=== PATIENT | female | born 1950 | race Hispanic/Latino ===

== ENCOUNTER → 2020-10-02 | Outpatient (CLI) | payer OTHER | END | disposition home or self-care (01) | LOC: RAH 14:33 | PROVIDERS: ATTEND Internal Medicine Cardiovascular Disease | DX: I65.21 Occlusion and stenosis of right carotid artery (principal) | CPT/HCPCS: 93880 ==

== ENCOUNTER 2020-11-18 17:43 | Emergency (ER) | payer OTHER ==
[~2020-11-18] VITALS: Ht 162.6 cm; Wt 73.9 kg
[2020-11-18 18:24] VITALS: BP 128/74
[2020-11-18 18:35] LABS: BASOPHILS % (AUTO) 0.9 % (0.0-5.0); HEMATOCRIT 43.5 % (36-48); LYMPHOCYTES % (AUTO) 36.1 % (21.0-51.0); MEAN CORPUSCULAR HEMOGLOBIN 28.8 pg (27.0-33.0); MEAN CORPUSCULAR HGB CONC 32.4 g/dL (32.0-36.0); MEAN CORPUSCULAR VOLUME 88.8 fL (79-99); MONOCYTES % (AUTO) 4.8 % (3.0-13.0); NEUTROPHILS % (AUTO) 52.9 % (40.0-77.0); PLATELET COUNT (AUTO) 337 K/uL (130-400); RED CELL DISTRIBUTION WIDTH 13.6 % (11.0-15.5)
[2020-11-18 18:49] LABS: CREATININE 0.6 mg/dL (0.5-1.5)
[2020-11-18 18:56] LABS: ALBUMIN 4.1 g/dL (3.5-5.0); BILIRUBIN,TOTAL 0.3 mg/dL (0.2-1.0); TOTAL PROTEIN, SERUM 8.3 g/dL (6.0-8.3)
[2020-11-18] MEDS ORDERED: ONDANSETRON 4MG INJ IVP ONE (19:30)
[2020-11-18] MEDS ORDERED: LACTATED RINGERS 500 ML 500 ML IV ONE ×2 (19:30→19:47)
[2020-11-18] MEDS ORDERED: FAMOTIDINE 20MG VIAL IV ONE (19:30)
[2020-11-18] MEDS ORDERED: METOCLOPRAMIDE 10 MG/2 ML VIAL IVP ONE (19:30)
[2020-11-18] MEDS ORDERED: PANTOPRAZOLE 40 MG/VIAL ONE (19:45)
[2020-11-18] MEDS ORDERED: PANT40TA PO (19:48)
[2020-11-18] MEDS ORDERED: ONDA4TAB10 PO (19:48)
[2020-11-18] MEDS ORDERED: DICY20TA2 PO (19:48)
[2020-11-18] MEDS ORDERED: METO-296 PO (19:48)
[2020-11-18 19:59] VITALS: BP 109/53
[2020-11-18] MEDS ORDERED: PANTOPRAZOLE 40 MG/VIAL IVP SCH (20:00)
== END 2020-11-18 20:51 | disposition home or self-care (01) ==
LOC: EDH 17:43
DX: E86.9 Volume depletion, unspecified (principal); R10.13 Epigastric pain; R10.12 Left upper quadrant pain; E11.9 Type 2 diabetes mellitus without complications; I10 Essential (primary) hypertension; E78.00 Pure hypercholesterolemia, unspecified; Z90.710 Acquired absence of both cervix and uterus; Z88.6 Allergy status to analgesic agent
CPT/HCPCS: 36415; 71045; 74176; 80053; 82150; 83690; 84484; 85025; 93005; 96374; 96375; 99285; C9113; J2405; J2765; J3490; J7120; 96361

== ENCOUNTER 2021-02-24 18:03 | Emergency (ER) | payer OTHER ==
[~2021-02-24] VITALS: Ht 162.6 cm; Wt 73.0 kg
[~2021-02-24 18:03] MED LIST: DICY20TA2 PO; METO-296 PO; ONDA4TAB10 PO; PANT40TA PO
[2021-02-24 18:27] LABS: BASOPHILS % (AUTO) 0.7 % (0.0-5.0); EOSINOPHILS % (AUTO) 4.5 % (0.0-8.0); HEMATOCRIT 41.4 % (36-48); LYMPHOCYTES % (AUTO) 30.2 % (21.0-51.0); MEAN CORPUSCULAR HEMOGLOBIN 28.9 pg (27.0-33.0); MEAN CORPUSCULAR HGB CONC 33.1 g/dL (32.0-36.0); MEAN CORPUSCULAR VOLUME 87.3 fL (79-99); MONOCYTES % (AUTO) 5.4 % (3.0-13.0); PLATELET COUNT (AUTO) 296 K/uL (130-400); RED BLOOD CELL COUNT(AUTO) 4.74 MIL/uL (4.00-5.50); RED CELL DISTRIBUTION WIDTH 13.5 % (11.0-15.5); WHITE BLOOD COUNT (AUTO) 11.3 K/uL (4.8-10.8)
[2021-02-24 18:35] LABS: CREATININE 0.7 mg/dL (0.5-1.5); POTASSIUM 3.9 mmol/L (3.5-5.1)
[2021-02-24 18:39] LABS: ALBUMIN 4.4 g/dL (3.5-5.0); BILIRUBIN,TOTAL 0.3 mg/dL (0.2-1.0); TOTAL PROTEIN, SERUM 8.6 g/dL (6.0-8.3)
[2021-02-24 20:36] LABS: APPEARANCE,URINE Cloudy (CLEAR); BILIRUBIN,URINE Negative (NEGATIVE); COLOR,URINE Yellow (YELLOW); GLUCOSE, URINE (UA) Negative (NEGATIVE); KETONES,URINE Negative (NEGATIVE); LEUKOCYTE ESTERASE ,URINE Trace (NEGATIVE); NITRATE,URINE Negative (NEGATIVE); OCCULT BLOOD,URINE Negative (NEGATIVE); PROTEIN,URINE Negative (NEGATIVE); UROBILINOGEN,URINE 0.2 mg/dL (0.2-1.0)
[2021-02-24 20:51] LABS: BACTERIA,URINE Rare /HPF (None Seen); RBC,URINE 0-1 /HPF (0-1)
[2021-02-24 20:52] LABS: SQUAMOUS EPITHELIAL CELL,UR Few /HPF (0-2)
[2021-02-24] MEDS ORDERED: CEPHALEXIN 500 MG CAPSULE PO ONE (21:00)
[2021-02-24] MEDS ORDERED: PHENAZOPYRIDINE HCL 200 MG TABLET PO ONE (21:00)
[2021-02-24] MEDS ORDERED: CEPH500B PO (21:13)
[2021-02-24] MEDS ORDERED: PHEN-847 PO (21:13)
[2021-02-24] MEDS ORDERED: CEPHALEXIN 500 MG CAPSULE ONE (21:14)
[2021-02-24] MEDS ORDERED: PHENAZOPYRIDINE HCL 200 MG TABLET ONE (21:15)
[2021-02-24 21:30] VITALS: BP 130/76
== END 2021-02-24 21:45 | disposition home or self-care (01) ==
LOC: EDH 18:03
DX: N39.0 Urinary tract infection, site not specified (principal); E11.9 Type 2 diabetes mellitus without complications; E78.00 Pure hypercholesterolemia, unspecified; I10 Essential (primary) hypertension; Z79.899 Other long term (current) drug therapy; Z88.6 Allergy status to analgesic agent
CPT/HCPCS: 36415; 80053; 81001; 85025

== ENCOUNTER 2021-09-12 14:03 | Emergency (ER) | payer OTHER ==
[~2021-09-12] VITALS: Ht 162.6 cm; Wt 72.6 kg
[~2021-09-12 14:03] MED LIST changes: +CEPH500B PO; +PHEN-847 PO
[2021-09-12] MEDS ORDERED: CYCLOBENZAPRINE HCL 10 MG TABLET PO ONE (14:30)
[2021-09-12] MEDS ORDERED: HYDROCODONE/ACETAMINOPHEN 5/325 MG TAB PO ONE (14:30)
[2021-09-12 15:23] VITALS: BP 125/68
[2021-09-12] MEDS ORDERED: CYCL10TA16 PO (15:50)
[2021-09-12] MEDS ORDERED: ACET-2247 PO (15:50)
== END 2021-09-12 16:10 | disposition home or self-care (01) ==
LOC: EDH 14:03
DX: S16.1XXA Strain of muscle, fascia and tendon at neck level, initial encounter (principal); S09.90XA Unspecified injury of head, initial encounter; E11.9 Type 2 diabetes mellitus without complications; E78.00 Pure hypercholesterolemia, unspecified; I10 Essential (primary) hypertension; Z88.6 Allergy status to analgesic agent; Z79.899 Other long term (current) drug therapy; Z98.890 Other specified postprocedural states; W18.39XA Other fall on same level, initial encounter; Y93.89 Activity, other specified; Y92.89 Other specified places as the place of occurrence of the external cause; Y99.8 Other external cause status
CPT/HCPCS: 70450; 72125

== ENCOUNTER 2022-09-03 19:15 | Emergency (ER) | payer OTHER ==
[~2022-09-03] VITALS: Ht 162.6 cm; Wt 72.6 kg
[~2022-09-03 19:15] MED LIST changes: +ACET-2247 PO; +CYCL10TA16 PO
[2022-09-03 19:40] LABS: BASOPHILS % (AUTO) 0.7 % (0.0-5.0); EOSINOPHILS % (AUTO) 1.5 % (0.0-8.0); HEMATOCRIT 40.2 % (36-48); MEAN CORPUSCULAR HEMOGLOBIN 29.4 pg (27.0-33.0); MEAN CORPUSCULAR HGB CONC 32.8 g/dL (32.0-36.0); MEAN CORPUSCULAR VOLUME 89.5 fL (79-99); MONOCYTES % (AUTO) 13.7 % (3.0-13.0); NEUTROPHILS % (AUTO) 30.9 % (40.0-77.0); NUCLEATED RED BLOOD CELLS 0.6 % (0.0-0.19); PLATELET COUNT (AUTO) 306 K/uL (130-400); RED BLOOD CELL COUNT(AUTO) 4.49 MIL/uL (4.00-5.50); RED CELL DISTRIBUTION WIDTH 14.3 % (11.0-15.5); WHITE BLOOD COUNT (AUTO) 11.6 K/uL (4.8-10.8)
[2022-09-03 19:55] LABS: INR 0.98 (0.85-1.15); PROTHROMBIN TIME 10.7 SEC (9.6-11.6)
[2022-09-03 19:56] LABS: APPEARANCE,URINE CLEAR (CLEAR); BILIRUBIN,URINE NEGATIVE (NEGATIVE); GLUCOSE, URINE (UA) NEGATIVE (NEGATIVE); KETONES,URINE NEGATIVE (NEGATIVE); LEUKOCYTE ESTERASE ,URINE NEGATIVE Leu/uL (NEGATIVE); NITRATE,URINE NEGATIVE (NEGATIVE); OCCULT BLOOD,URINE NEGATIVE (NEGATIVE); PH,URINE 6.5 (5.0-8.0); PROTEIN,URINE NEGATIVE (NEGATIVE); UROBILINOGEN,URINE 0.2 mg/dL (0.2-1.0)
[2022-09-03 19:57] LABS: PARTIAL THROMBOPLASTIN TIME 27.7 SEC (26.3-35.5)
[2022-09-03 19:58] LABS: COLOR,URINE YELLOW (YELLOW)
[2022-09-03 19:59] LABS: CREATININE 0.9 mg/dL (0.5-1.5); POTASSIUM 3.4 mmol/L (3.5-5.1)
[2022-09-03 20:00] LABS: ALBUMIN 3.9 g/dL (3.5-5.0); TOTAL PROTEIN, SERUM 7.7 g/dL (6.0-8.3)
[2022-09-03] MEDS ORDERED: ACET-2743 PO (21:54)
[2022-09-03] MEDS ORDERED: GUAI1TBM19 PO (21:54)
[2022-09-03 22:19] VITALS: BP 143/65
== END 2022-09-03 22:46 | disposition home or self-care (01) ==
LOC: EDH 19:15
DX: R07.2 Precordial pain (principal); I10 Essential (primary) hypertension; E78.00 Pure hypercholesterolemia, unspecified; Z20.822 Contact with and (suspected) exposure to COVID-19; Z79.899 Other long term (current) drug therapy; Z98.890 Other specified postprocedural states; Z88.6 Allergy status to analgesic agent
CPT/HCPCS: 99284; 71045; 87635; 84484 ×2; 80053; 83880; 85025; 85378; 85610; 85730; 87804 ×2; 81003; 36415; 93005; C9803

== ENCOUNTER 2024-10-06 19:51 | Emergency (ER) | payer OTHER ==
[~2024-10-06] VITALS: Ht 162.6 cm; Wt 69.9 kg
[~2024-10-06 19:51] MED LIST changes: +ACET-2743 PO; +GUAI1TBM19 PO; +ONDA-243 PO; -ONDA4TAB10 PO
--- NOTE | 2024-10-06 19:58 | ERN ---
ED Note History of Present Illness Stated Complaint: ABD PAIN patient has been having abdominal pain last few days has been pooping every day. Denies any hematuria dysuria discharge. Chief Complaint: Abdominal Pain Time Seen by MD: 19:56 Allergies: Coded Allergies: aspirin (Unverified Allergy, Unknown, 11/18/20) Home Meds Active Scripts Acetaminophen (Tylenol Extra Strength) 500 Mg Tablet, 500 MG PO Q4HPRN PRN for PAIN, #50 TAB Prov:HEMA JJ MD 09/03/22 Guaifenesin/Dextromethorphan (Mucinex Dm ER 1,200-60 mg Tab) 1 Each Tbmp.12hr, 1 EACH PO BID, #10 TAB Prov:HEMA JJ MD 09/03/22 Acetaminophen (Tylenol) 325 Mg Tablet, 650 MG PO Q4HPRN, #50 TAB Prov:NAKUL JUÁREZ 09/12/21 Cyclobenzaprine HCl (Flexeril) 10 Mg Tab, 10 MG PO BID, #30 TAB Prov:NAKUL JUÁREZ 09/12/21 Phenazopyridine HCl (Pyridium) 200 Mg Tab, 200 MG PO TIDPC, #15 TAB TAKE WITH FOOD TO PREVENT STOMACH UPSET. Prov:TYSHAWN MUNSON MD 02/24/21 Cephalexin Monohydrate (Keflex) 500 Mg Cap, 500 MG PO BID for 5 Days, #10 CAP Prov:TYSHAWN MUNSON MD 02/24/21 Dicyclomine HCl (Bentyl) 20 Mg Tab, 20 MG PO Q6HPRN, #20 TAB 0 Refills Prov:JAMEL HOPSON MD 11/18/20 Metoclopramide HCl (Reglan) 10 Mg Tablet, 10 MG PO TIDP, #20 TAB 0 Refills Prov:JAMEL HOPSON MD 11/18/20 Ondansetron (Ondansetron Odt) 4 Mg Tab.rapdis, 4 MG PO Q6HPRN, #20 TAB 0 Refills Prov:JAMEL HOPSON MD 11/18/20 Pantoprazole Sodium (Protonix) 40 Mg Tablet.dr, 40 MG PO DAILY, #10 TAB 0 Refills Prov:JAMEL HOPSON MD 11/18/20 Past Medical History Past Medical History: High Cholesterol, Hypertension, Other Additional Past Medical Hx: CANCER Surgical History: Unknown Surgical History Other: RIGHT HAND SURGERY Family History: Negative Social History: Negative Review of System Dictation Constitutional: Negative for fever,chills, and weight loss Eyes: Negative for injury, pain,redness, and discharge ENT: Negative for injury,pain or swelling Cardiovascular: Negative for chest pain, palpitations, and edema Respiratory: Negative for shortness of breath, cough, and wheezing, Abdomen/GI: Negative for abdominal pain, nausea, vomiting, diarrhea, and constipation Back: Negative for injury and pain : Negative for injury, bleeding and discharge MS/Extremity: Negative for injury and deformity Skin: Negative for rash, and discoloration Neuro: Negative for headache, weakness, numbness, tingling, and seizure Psych: Negative for suicide ideation, homicidal ideation, and hallucinations Initial Vital Sign VS Vital Signs Date Time Temp Pulse Resp B/P (MAP) Pulse Ox O2 Delivery O2 Flow Rate FiO2 10/06/24 19:52 97.0 85 16 142/66 98 Room Air 10/06/24 20:04 0 21 Physical Exam Dictation General: awake, alert, NAD Head/Face: Normocephalic, atraumatic Eyes: PERRL, EOMI, vision at baseline ENT: oral cavity clear, TMs clear, no signs of infection Neck: Trachea midline, supple, no nuchal rigidity Cardiovascular: RRR, normal S1/S2, No MRGs, no JVD Respiratory: CTAB, no respiratory distress, No rales or wheezes Abdomen: Soft, non-tender, non-distended, normal bowel sounds, no guarding or rebound. Skin: Warm, dry, normal turgor, no rash MS/Extremity: Pulses equal, no cyanosis, neurovascular intact, FROM Neuro: COAx4, GCS 15, strength 5/5, CN 2-12 intact, normal cerebellar exam, normal gait, Psych: Normal behavior, mood, and affect normal Results (Laboratory/Radiology) Laboratory/Radiology Laboratory Tests Test 10/06/24 20:13 10/06/24 20:15 White Blood Count 11.7 K/uL (4.8-10.8) H Red Blood Count 4.40 MIL/uL (4.00-5.50) Hemoglobin 12.9 g/dL (12.0-16.0) Hematocrit 39.4 % (36-48) Mean Corpuscular Volume 89.5 fL (79-99) Mean Corpuscular Hemoglobin 29.3 pg (27.0-33.0) Mean Corpuscular Hemoglobin Concent 32.7 g/dL (32.0-36.0) Red Cell Distribution Width 15.7 % (11.0-15.5) H Platelet Count 231 K/uL (130-400) Mean Platelet Volume 9.1 fL (7.5-10.5) Immature Granulocyte % (Auto) 0.5 % (0-1) Neutrophils (%) (Auto) 72.7 % (40.0-77.0) Lymphocytes (%) (Auto) 20.4 % (21.0-51.0) L Monocytes (%) (Auto) 4.7 % (3.0-13.0) Eosinophils (%) (Auto) 1.1 % (0.0-8.0) Basophils (%) (Auto) 0.6 % (0.0-5.0) Neutrophils # (Auto) 8.5 K/uL (1.8-7.7) H Lymphocytes # (Auto) 2.4 K/uL (1.0-4.8) Monocytes # (Auto) 0.6 K/uL (0.1-1.0) Eosinophils # (Auto) 0.13 K/uL (0.00-0.70) Basophils # (Auto) 0.07 K/uL (0.00-0.20) Absolute Immature Granulocyte (auto 0.06 K/uL (0-1) Nucleated Red Blood Cells 0.0 % (0.0-0.19) Sodium Level 138 mmol/L (136-145) Potassium Level 4.3 mmol/L (3.5-5.1) Chloride Level 100 mmol/L (101-111) L Carbon Dioxide Level 30 mmol/L (21-32) Blood Urea Nitrogen 13 mg/dL (7-18) Creatinine 0.5 mg/dL (0.5-1.0) Glomerular Filtration Rate Calc 100 mL/min (>90) Random Glucose 141 mg/dL (70-105) H Total Calcium 9.3 mg/dL (8.5-10.1) Total Bilirubin 0.3 mg/dL (0.2-1.0) Aspartate Amino Transf (AST/SGOT) 31 U/L (10-37) Alanine Aminotransferase (ALT/SGPT) 34 U/L (12-78) Alkaline Phosphatase 89 U/L (50-136) Troponin I High Sensitivity 11 ng/L (4-50) Total Protein 7.6 g/dL (6.0-8.3) Albumin 4.4 g/dL (3.5-5.0) Lipase 21 U/L (16-77) Urine Color COLORLESS (YELLOW) Urine Appearance CLEAR (CLEAR) Urine pH 6.0 (5.0-8.0) Urine Specific [place] 1.009 (1.001-1.031) Urine Protein 10 mg/dL (NEGATIVE) H Urine Glucose (UA) NEGATIVE mg/dL (NEGATIVE) Urine Ketones 5 mg/dL (NEGATIVE) H Urine Occult Blood NEGATIVE (NEGATIVE) Urine Nitrate NEGATIVE (NEGATIVE) Urine Bilirubin NEGATIVE mg/dL (NEGATIVE) Urine Urobilinogen 0.2 mg/dL (0.2-1.0) Urine Leukocyte Esterase NEGATIVE [place]/uL Urine RBC 0-1 /HPF (0-1) Urine WBC 0-1 /HPF (0-1) Urine Squamous Epithelial Cells RARE /HPF (0-2) Urine Bacteria None /HPF (None Seen) ED Course ED Course Orders Procedure Category Date Status Time Cbc With Differential LAB 10/06/24 Complete 19:58 Comprehensive LAB 10/06/24 Complete Metabolic Panel 19:58 Troponin I High LAB 10/06/24 Complete Sensitivity 19:58 Urinalysis Profile LAB 10/06/24 Complete 19:58 12 Lead Ekg Tracing- EKG 10/06/24 Complete Technical 19:58 Lactated Ringers PHA 10/06/24 In Process 1000ml (Lactated 20:00 Morphine 4mg Syg PHA 10/06/24 In Process (Morphine 4mg Syg) 20:00 Ondansetron 4mg Inj PHA 10/06/24 In Process (Zofran 4mg Inj) 20:00 Ct Abdomen/Pelvis W/O CT 10/06/24 Resulted Contrast 19:58 Chest 1vw RAD 10/06/24 Resulted 19:58 Lipase LAB 10/06/24 Complete 19:58 Current Medications Medications (Trade) Dose Ordered Sig/Kaylee Route PRN Reason Start Time Stop Time Status Last Admin Dose Admin Lactated Ringer's 1,000 ml @ 0 mls/hr ONCE IV 10/06/24 20:00 10/07/24 21:00 10/06/24 20:26 Morphine Sulfate (morPHINE 4MG SYG) 4 mg ONCE IVP 10/06/24 20:00 10/06/24 23:59 10/06/24 20:27 Ondansetron HCl (zoFRAN 4MG INJ) 4 mg ONCE IVP 10/06/24 20:00 10/06/24 23:59 10/06/24 20:27 Vital Signs Date Time Temp Pulse Resp B/P (MAP) Pulse Ox O2 Delivery O2 Flow Rate FiO2 10/06/24 22:03 97.0 72 18 134/62 98 Room Air* 0 21 10/06/24 20:32 97.0 79 18 149/66 98 Room Air* 0 10/06/24 20:04 84 18 158/92 98 Room Air* 0 10/06/24 19:52 97.0 85 16 142/66 98 Room Air Medical Decision Making MDM I had the nurse present with a me pharmacist helper this entire time. I told the [place] and the patient is [place]. That there was a mass lesion and cavitary lesion in the lungs. They said that they may have had this there before. Because the patient does have a history of leukemia. By said that they can follow up with the oncologist. But she is not have any cough congestion runny nose any fevers or any chills or anything of that nature right now. She is stooling every day. That has stable for outpatient management no other questions complaints concerns at this time. MDM: Differential diagnosis: Rationale: Tests considered and ordered secondary to shared decision making include: Previous outside records reviewed: Old ER visits. Risk of complication and/or morbidity or mortality of patient management: None Medications-Per medication reconciliation Need for hospitalization: Patient does not meet criteria for hospitalization. Need for emergency major/minor surgery: No There are no social concerns with this patient. Prescription drug management Prescriptions will include symptomatic care Patient's prior external medical records from other ER visits were reviewed by me as indicated. Prior testing and results from previous visits were reviewed. Prior tests were taken into account with medical decision making and resource utilization, independent historian/historians were used to obtain complete medical history. I independently interpreted the test that were performed, results were reviewed by me and considered findings on radiology if ordered. Medical management and examination interpretation discussions were had by me matthew evans other qualified healthcare professionals as indicated for the patient's care. DX & DISP Disposition: Discharge Departure Impression: Primary Impression: Abdominal pain Condition: Stable Referrals: MONIQUE DAVIS MD (PCP) DAVE CHRISTIE MD Oct 06, 2024 19:58
--- NOTE | 2024-10-06 20:10 | EKG ---
[facility] Test Date: 2024-10-06 Test Time: 20:06:17 Pat Name: WHITNEY CALDERON Department: [facility] Room: Gender: F Assistant Community Manager: [id number] : 1950 Requested By: DAVE CHRISTIE Order Number: [id number] Reading MD: Иван Lancaster Measurements Intervals [place] Rate: 83 P: 44 NC: 142 QRS: 64 QRSD: 122 T: 16 QT: 397 QTc: 468 Interpretive Statements Sinus rhythm Right bundle branch block Compared to ECG 09/03/2022 19:15:45 No significant changes Electronically Signed On 10-09-2024 00:00:38 CDT by Иван Lancaster Please click the below link to view image of tracing.
[2024-10-06 20:23] LABS: IMMATURE GRANULOCYTE ABSOLUTE 0.06 K/uL (0-1); NUCLEATED RED BLOOD CELLS 0.0 % (0.0-0.19); PLATELET COUNT (AUTO) 231 K/uL (130-400); RED BLOOD CELL COUNT(AUTO) 4.40 MIL/uL (4.00-5.50); RED CELL DISTRIBUTION WIDTH 15.7 % (11.0-15.5); WHITE BLOOD COUNT (AUTO) 11.7 K/uL (4.8-10.8)
[2024-10-06] MEDS: LACTATED RINGERS 1000ML 1,000 ML IV SCH (20:26)
[2024-10-06 20:32] LABS: CREATININE 0.5 mg/dL (0.5-1.0); GLOMERULAR FILTR. RATE CALC 100.0 mL/min (>90); GLUCOSE,RANDOM 141.0 mg/dL (70-105); SODIUM SERUM 138.0 mmol/L (136-145); UREA NITROGEN, BLOOD 13.0 mg/dL (7-18)
[2024-10-06 20:36] LABS: ASPARTATE AMINOTRANSFERASE 31.0 U/L (10-37); TOTAL PROTEIN, SERUM 7.6 g/dL (6.0-8.3)
[2024-10-06 20:40] LABS: APPEARANCE,URINE CLEAR (CLEAR); GLUCOSE, URINE (UA) NEGATIVE (NEGATIVE); LEUKOCYTE ESTERASE ,URINE NEGATIVE Leu/uL (NEGATIVE); NITRATE,URINE NEGATIVE (NEGATIVE); OCCULT BLOOD,URINE NEGATIVE (NEGATIVE)
[2024-10-06 20:44] LABS: ADD UA MICROSCOPIC YES
[2024-10-06 20:46] LABS: SQUAMOUS EPITHELIAL CELL,UR RARE /HPF (0-2)
--- NOTE | 2024-10-06 22:07 | HMCIMG ---
EXAM: CR Chest, 1 View. CLINICAL HISTORY: c COMPARISON: None provided. FINDINGS: LUNGS: There is no mass, infiltrate, or acute pulmonary abnormality. PLEURAL SPACES: No pleural effusion or pneumothorax. MEDIASTINUM: Cardiac size and mediastinal contours within normal limits. BONES: No aggressive appearing osseous lesion seen. IMPRESSION: No acute cardiopulmonary pathology is evident. /[place]
--- NOTE | 2024-10-06 22:29 | HMCIMG ---
EXAM: CT Abdomen and Pelvis without IV contrast CLINICAL HISTORY: Abdominal pain TECHNIQUE: Thin collimated axial CT images of the abdomen and pelvis were obtained, with sagittal and coronal reformatted images also submitted. A CT scan is done according to ALARA (As Low As Reasonably Achievable). CONTRAST: None COMPARISON: Prior CT abdomen and pelvis dated 18 November 2020 FINDINGS: A thick-walled cavitary lesion 3.3 x 2.1 cm in the medial basal segment of the right lower lobe. Mild fatty infiltration of the liver. No obvious focal lesion. An exophytic 2.3 cm cortical cyst from the right kidney upper pole and an exophytic 10 mm lesion from the right kidney interpolar region isodense to the renal cortex probable proteinaceous cyst. Mild fatty infiltration of the pancreatic head and pancreatic neck. No focal abnormality within the liver, gallbladder, pancreas, spleen, or adrenals. There is no obvious bowel wall thickening. Bowel loops are normal in caliber without evidence of obstruction or ileus. The appendix is normal. Uncomplicated colonic diverticula. There is no abnormality within the urinary bladder. The uterus and ovaries are atrophied. Degenerative myometrial calcifications versus a tiny calcified uterine fibroids are evident. Abdominal and pelvic vessels are limited in evaluation due to a lack of intravenous contrast. No evidence of aneurysmal dilatation of the abdominal aorta No lymphadenopathy. No free fluid. There is no acute osseous abnormality. Mild osteopenia. Degenerative changes in the sacroiliac, superolateral hip joint, and multilevel degenerative facet arthropathy. Bilateral pars defect at L5-S1 level with grade 1 anterolisthesis of L5 over S1. Moderate narrowing of the bilateral neural foramina. IMPRESSIONS: No acute process in the abdomen or pelvis. Renal cyst. Mild fatty infiltration of the liver. Uncomplicated colonic diverticula. A thick-walled cavitary lesion 3.3 x 2.1 cm in the medial basal segment of the right lower lobe. This is a new finding compared to the previous CT abdomen and pelvis dated 11/18/2020. Recommend a contrast-enhanced CT scan of the chest for further evaluation. The remaining findings are grossly stable. /[place]
[2024-10-06 23:00] VITALS: BP 138/65; PULSE 71; RESP 18; TEMP 97; O2SAT 98
== END 2024-10-06 23:03 | disposition home or self-care (01) ==
LOC: EDH 19:51
DX: N28.1 Cyst of kidney, acquired (principal); K76.0 Fatty (change of) liver, not elsewhere classified; K57.30 Diverticulosis of large intestine without perforation or abscess without bleeding; E78.00 Pure hypercholesterolemia, unspecified; I10 Essential (primary) hypertension; Z79.899 Other long term (current) drug therapy; Z88.6 Allergy status to analgesic agent; Z98.890 Other specified postprocedural states
CPT/HCPCS: 99284; 74176; 96374; 71045; 96375; 84484; 80053; 83690; 85025; 81001; 36415; 93005; J7120; J2405; J2270